=== PATIENT | male | born 1965 | race Caucasian/White ===

== ENCOUNTER 2021-04-15 12:45 | Observation (INO) | payer BC ==
[~2021-04-15] VITALS: Ht 180.3 cm; Wt 83.9 kg
[2021-04-15] MEDS ORDERED: PROTONIX40 MG PO (13:06)
[2021-04-15] MEDS ORDERED: PROAIR HFA8.5 G1 INH (13:07)
[2021-04-15 13:09] VITALS: BP 169/98; BMI 25.8
[2021-04-15 14:23] LABS: BASOPHILS 0.7 % (0-2); EOSINOPHILS 0.2 % (0-7); HEMATOCRIT 45.1 % (42.0-54.0); HEMOGLOBIN 15.6 g/dL (13.5-17.5); LYMPHOCYTES 12.4 % (15-50); MCH 31.2 pg (26.0-34.0); MCHC 34.5 g/dL (31.0-37.0); MCV 90.5 fL (80.0-100.0); MEAN PLATELET VOLUME 9.5 fL (7.4-10.4); MONOCYTES 6.1 % (2-11); NEUTROPHILS 80.6 % (40-80); PLATELET COUNT 221 10x3/uL (130-400); RBC 4.99 10x6/uL (4.20-6.10); RDW 13.6 % (11.5-14.5); WBC 9.1 10x3/uL (4.8-10.8)
[2021-04-15 14:45] LABS: ALBUMIN 4.3 g/dL (3.4-5.0); ALKALINE PHOSPHATASE 77 U/L (30-120); ALT (SGPT) 29 U/L (10-68); AMYLASE - SERUM 71 U/L (25-115); BILIRUBIN - TOTAL 0.53 mg/dL (0.2-1.3); CALC OSMOLALITY 281 mosm/kg (275-300); CALCIUM 8.8 mg/dL (8.5-10.1); CARBON DIOXIDE 28.2 mmol/L (21.0-32.0); CHLORIDE - SERUM 104 mmol/L (98-107); GLUCOSE 102 mg/dL (74-106); LIPASE 53 U/L (73-393); MAGNESIUM - SERUM 1.9 mg/dL (1.8-2.4); PHOSPHOROUS 3.3 mg/dL (2.5-4.9); POTASSIUM - SERUM 3.8 mmol/L (3.5-5.1); PRO BNP 1167 pg/mL (0-125); PROTEIN - SERUM 6.8 g/dL (6.4-8.2); SODIUM 141 mmol/L (136-145); UREA NITROGEN 15 mg/dL (7-18); eGFR NON AFRICAN AMERICAN 83 mL/min (90-120)
[2021-04-15 14:46] LABS: CKMB 0.9 U/L (0.0-3.6); CREATINE KINASE 75 UL (21-232)
[2021-04-15 14:56] LABS: TROPONIN-I < 0.017 ng/mL (0.000-0.060)
[2021-04-15 16:29] LABS: BILIRUBIN NEGATIVE (NEGATIVE); KETONE TRACE mg/dL (< 1+); NITRITE NEGATIVE (NEGATIVE); PH 7.5 (5.0-8.0); UROBILINOGEN NORMAL mg/dL (< 2)
[2021-04-15 17:43] VITALS: BP 134/98
[2021-04-15 19:55] LABS: CKMB 0.8 U/L (0.0-3.6); CREATINE KINASE 67 UL (21-232)
[2021-04-15 20:00] VITALS: BP 157/99
[2021-04-15 20:04] LABS: TROPONIN-I < 0.017 ng/mL (0.000-0.060)
[2021-04-16] VITALS: BP 136/89
[2021-04-16 01:49] LABS: CKMB 2.3 U/L (0.0-3.6); CREATINE KINASE 226 UL (21-232); TROPONIN-I < 0.017 ng/mL (0.000-0.060)
[2021-04-16 05:49] LABS: BASOPHILS 0.7 % (0-2); EOSINOPHILS 1.1 % (0-7); HEMATOCRIT 42.7 % (42.0-54.0); HEMOGLOBIN 14.7 g/dL (13.5-17.5); LYMPHOCYTES 21.6 % (15-50); MCH 31.3 pg (26.0-34.0); MCHC 34.5 g/dL (31.0-37.0); MCV 90.7 fL (80.0-100.0); MEAN PLATELET VOLUME 9.2 fL (7.4-10.4); MONOCYTES 6.9 % (2-11); NEUTROPHILS 69.7 % (40-80); PLATELET COUNT 217 10x3/uL (130-400); RDW 13.5 % (11.5-14.5); WBC 7.7 10x3/uL (4.8-10.8)
[2021-04-16 06:10] LABS: ALBUMIN 3.8 g/dL (3.4-5.0); ALKALINE PHOSPHATASE 72 U/L (30-120); ALT (SGPT) 24 U/L (10-68); BILIRUBIN - TOTAL 0.48 mg/dL (0.2-1.3); CALC OSMOLALITY 279 mosm/kg (275-300); CARBON DIOXIDE 25.6 mmol/L (21.0-32.0); CHLORIDE - SERUM 105 mmol/L (98-107); CREATININE - SERUM 0.9 mg/dL (0.6-1.3); GLUCOSE 98 mg/dL (74-106); PHOSPHOROUS 3.7 mg/dL (2.5-4.9); POTASSIUM - SERUM 3.5 mmol/L (3.5-5.1); PROTEIN - SERUM 6.3 g/dL (6.4-8.2); SODIUM 140 mmol/L (136-145); UREA NITROGEN 14 mg/dL (7-18); eGFR NON AFRICAN AMERICAN > 90 mL/min (90-120)
[2021-04-16 06:39] VITALS: BP 128/85
[2021-04-16 08:40] VITALS: BP 123/84
[2021-04-16 12:03] VITALS: BP 147/90
[2021-04-16 13:37] VITALS: BMI 25.8
[2021-04-16 14:13] VITALS: Ht 180.3 cm; Wt 83.9 kg
--- NOTE | 2021-04-16 19:30 | NUR ---
PT IN BED, AAO X 3, RESP EVEN AND UNLABORED, NO DISTRESS NOTED, CL IN REACH, SR UP X 2. NO CHEST PAIN OR DIAHHREA NOTED AT THIS TIME.
[2021-04-16 20:00] VITALS: BP 133/92
[2021-04-17] VITALS: BP 148/98
[2021-04-17 04:00] VITALS: BP 146/96
[2021-04-17 07:30] LABS: BASOPHILS 0.6 % (0-2); EOSINOPHILS 1.7 % (0-7); HEMATOCRIT 46.5 % (42.0-54.0); HEMOGLOBIN 15.9 g/dL (13.5-17.5); LYMPHOCYTES 20.5 % (15-50); MCH 31.2 pg (26.0-34.0); MCHC 34.1 g/dL (31.0-37.0); MCV 91.4 fL (80.0-100.0); MEAN PLATELET VOLUME 9.4 fL (7.4-10.4); NEUTROPHILS 70.2 % (40-80); PLATELET COUNT 230 10x3/uL (130-400); RBC 5.09 10x6/uL (4.20-6.10); RDW 13.4 % (11.5-14.5); WBC 8.7 10x3/uL (4.8-10.8)
[2021-04-17 07:52] LABS: ALBUMIN 4.2 g/dL (3.4-5.0); ALKALINE PHOSPHATASE 77 U/L (30-120); ALT (SGPT) 25 U/L (10-68); BILIRUBIN - TOTAL 0.47 mg/dL (0.2-1.3); CALC OSMOLALITY 276 mosm/kg (275-300); CALCIUM 8.3 mg/dL (8.5-10.1); CARBON DIOXIDE 26.2 mmol/L (21.0-32.0); CHLORIDE - SERUM 104 mmol/L (98-107); GLUCOSE 88 mg/dL (74-106); MAGNESIUM - SERUM 2.2 mg/dL (1.8-2.4); POTASSIUM - SERUM 3.9 mmol/L (3.5-5.1); PROTEIN - SERUM 7.1 g/dL (6.4-8.2); SODIUM 140 mmol/L (136-145); UREA NITROGEN 11 mg/dL (7-18); eGFR NON AFRICAN AMERICAN 83 mL/min (90-120)
[2021-04-17 07:53] LABS: PHOSPHOROUS 2.5 mg/dL (2.5-4.9)
[2021-04-17 08:42] VITALS: BP 166/118
--- NOTE | 2021-04-17 12:11 | NUR ---
SALINE LOCK AND TELEMETRY REMOVED, DISCHARGE PAPERS DISCUSSED AND PATIENT AMBULATORY TO OWN VEHICLE FOR DISCHARGE HOME.
== END 2021-04-17 12:15 | disposition home or self-care (01) ==
LOC: OBSVTIME 12:45 → D.M2 12:45 → D.SDCHOLD 04-16 16:50 → D.M2 04-16 16:51
PROVIDERS: Family Medicine; ADMIT Family Medicine; ATTEND Family Medicine
DX: R10.31 Right lower quadrant pain (principal); R19.7 Diarrhea, unspecified; J44.9 Chronic obstructive pulmonary disease, unspecified; K21.9 Gastro-esophageal reflux disease without esophagitis